=== PATIENT | male | born 1935 | race African-American/Black ===

== ENCOUNTER 2016-10-01 14:13 | Observation (INO) | payer OTHER, MEDICAID ==
[~2016-10-01] VITALS: Ht 172.7 cm; Wt 68.0 kg
[2016-10-01 15:46] LABS: BASOPHILS % 0.6 % (0.0-2.0); CHLORIDE 110 mEq/L (98-107); EOSINOPHILS % 0.4 % (0.0-5.0); HEMOGLOBIN. 7.6 g/dL (14.0-18.0); LYMPHOCYTES % 14.5 % (20.0-50.0); MEAN CORPUSCULAR HEMOGLOBIN 25.3 pg (28.0-32.0); MEAN CORPUSCULAR VOLUME 79.8 fL (80.0-94.0); MEAN PLATELET VOLUME 7.2 fl (7.4-10.4); MONOCYTES % 11.4 % (2.0-8.0); NEUTROPHILS % 73.1 % (40.0-76.0); PLATELET 494 x1000/uL (130-400); RED CELL DISTRIBUTION WIDTH 21.4 % (11.6-14.6)
[2016-10-01 15:51] LABS: INR 1.3; PARTIAL THROMBOPLASTIN TIME 33.2 sec (23.4-31.0); PROTHROMBIN TIME 13.4 sec (9.4-11.6)
[2016-10-01 15:52] LABS: CARBON DIOXIDE 24 mEq/L (21-32)
[2016-10-01 20:00] VITALS: BP 111/51
[2016-10-02] VITALS (12 sets, daily range): BP systolic 97–125; BP diastolic 43–73
[2016-10-02] MEDS ORDERED: ACETAMINOPHEN 325MG TABLET PO PRN
[2016-10-02] MEDS ORDERED: LORAZEPAM 0.5MG TABLET PO PRN (01:54)
[2016-10-02 09:15] LABS: BASOPHILS % 0.6 % (0.0-2.0); EOSINOPHILS % 0.9 % (0.0-5.0); HEMATOCRIT. 26.8 % (42.0-52.0); HEMOGLOBIN. 8.7 g/dL (14.0-18.0); LYMPHOCYTES % 22.4 % (20.0-50.0); MEAN CORPUSCULAR HEMOGLOBIN 25.7 pg (28.0-32.0); MEAN CORPUSCULAR VOLUME 79.1 fL (80.0-94.0); MEAN PLATELET VOLUME 6.8 fl (7.4-10.4); MONOCYTES % 11.3 % (2.0-8.0); NEUTROPHILS % 64.8 % (40.0-76.0); PLATELET 433 x1000/uL (130-400); RED BLOOD CELL COUNT 3.39 mill/uL (4.7-6.1); RED CELL DISTRIBUTION WIDTH 20.7 % (11.6-14.6)
[2016-10-02 09:52] LABS: CARBON DIOXIDE 25 mEq/L (21-32); CHLORIDE 111 mEq/L (98-107)
[2016-10-02 09:57] LABS: TOTAL IRON BINDING CAPACITY 115 ug/dL (250-450)
[2016-10-02] MEDS ORDERED: CEFAZOLIN 1000MG PREMIX 50 ML IV SCH (10:30)
[2016-10-02] MEDS ORDERED: MIDAZOLAM HCL 5 MG/5 ML VIAL IV PRN (11:34)
[2016-10-02] MEDS ORDERED: MIDAZOLAM HCL 5 MG/5 ML VIAL ONE (11:36)
[2016-10-02] MEDS ORDERED: FENTANYL CITRATE/PF 50MCG/ML 2ML VIAL ONE (11:36)
[2016-10-02 12:39] LABS: FOLIC ACID (FOLATE) SERUM 14.2 ng/mL (>5.38)
[2016-10-02] MEDS: DEXT 5%/0.45% NACL 1000ML 1,000 ML IV SCH (13:34)
[2016-10-02] MEDS: PANTOPRAZOLE SODIUM 40 MG/VIAL IV SCH (13:35)
[2016-10-02] MEDS ORDERED: SIMETHICONE 40 MG/0.6 ML 30ML ONE (14:19)
[2016-10-02] MEDS: ENOXAPARIN 40MG/0.4ML SYR SUBCUT SCH (16:46)
[2016-10-03] VITALS: BP 124/57
[2016-10-03 04:00] VITALS: BP 119/51
[2016-10-03 08:00] VITALS: BP 115/57
[2016-10-03] MEDS: SODIUM CHLORIDE 0.9% INJ 3ML FLUSH IVF SCH ×2 (09:49→16:25)
[2016-10-03] MEDS: PANTOPRAZOLE SODIUM 40 MG/VIAL IV SCH (09:49)
[2016-10-03] MEDS: DEXT 5%/0.45% NACL 1000ML 1,000 ML IV SCH ×2 (09:50→16:25)
[2016-10-03 12:00] VITALS: BP 120/54
[2016-10-03 14:29] VITALS: BP_SYST 108; BP_SYST 120; BP_DIAS 54; BP_DIAS 57
[2016-10-03] MEDS: ENOXAPARIN 40MG/0.4ML SYR SUBCUT SCH (15:54)
[2016-10-03 16:00] VITALS: BP 108/57
[2016-10-05 08:14] LABS: A/G RATIO 0.7 (0.7-1.7); ALPHA-1-GLOBULIN 0.5 g/dL (0.0-0.4); ALPHA-2-GLOBULIN 0.8 g/dL (0.4-1.0); BETA GLOBULIN 0.8 g/dL (0.7-1.3); GAMMA GLOBULINS 0.7 g/dL (0.4-1.8); GLOBULIN TOTAL 2.8 g/dL (2.2-3.9); M-SPIKE 0.1 g/dL (Not Observed); TOTAL PROTEIN SERUM 4.8 g/dL (6.0-8.5)
== END 2016-10-03 17:20 ==
LOC: ER 14:27 → 6EST 16:12 → INTOOBSV 16:12 → ENRESERV 19:17
PROVIDERS: ADMIT Internal Medicine; ATTEND Internal Medicine
DX: D62 Acute posthemorrhagic anemia (principal); E46 Unspecified protein-calorie malnutrition; R62.7 Adult failure to thrive; D68.59 Other primary thrombophilia; F03.90 Unspecified dementia, unspecified severity, without behavioral disturbance, psychotic disturbance, mood disturbance, and anxiety; Z93.1 Gastrostomy status; Z85.46 Personal history of malignant neoplasm of prostate; Z85.830 Personal history of malignant neoplasm of bone; Z86.711 Personal history of pulmonary embolism; Z86.718 Personal history of other venous thrombosis and embolism
CPT/HCPCS: 36415; 36430; 43246; 80048; 82607; 82728; 82746; 83540; 83550; 84155; 84165; 84443; 85025; 85610; 85730; 86850; 86900; 86901; 86920; 96372; 96374; 96376; 99285; A6261; C9113; G0378; J0690; J1650; J2250; J3490; J7040; P9016; 99151; 99152; J3010